=== PATIENT | male | born 1985 | race Caucasian/White ===

== ENCOUNTER 2021-07-18 16:56 | Emergency (ER) | payer SELFPAY ==
[~2021-07-18] VITALS: Ht 175.3 cm; Wt 77.6 kg
--- NOTE | 2021-07-18 16:56 | NUR ---
[facility] TO CHAIR [facility]
[2021-07-18 17:02] VITALS: BP 115/49
[2021-07-18] MEDS ORDERED: BACITRACIN OINT 500 UNITS/GM PKT TP ONE (18:00)
--- NOTE | 2021-07-18 18:12 | NUR ---
35 Y/O MALE BIB PD, PATIENT PRESENTS TO ED WITH MUTLIPLE ABRASIONS ON BODY AND REQUESTING MEDICAL CLEARANCE FOR ETOH AND FACIAL PAIN. PT STATES PAIN IS 8/10. DENIES N/V/D; SKIN IS REDDENED/WARM/DRY, MULTIPLE ABRASIONS; AAOX4, SLOVENIAN SPEAKING WITH EVEN AND STEADY GAIT; LUNGS CLEAR BL; HR EVEN AND REGULAR; PT DENIES ANY FEVER, CP, SOB, OR COUGH AT THIS TIME;ER MD MADE AWARE OF PT STATUS. DENIES SYNCOPE OR LOC. PMH: DENIES [facility] MED: DENIES
[2021-07-18 18:16] VITALS: BP 115/49
--- NOTE | 2021-07-18 18:17 | NUR ---
Patient discharged with v/s stable. Written and verbal after care instructions given and explained. Patient verbalized understanding. ambulatory with Police in custody. All questions addressed prior to discharge. Advised to follow up with PMD.
== END 2021-07-18 18:17 | disposition home or self-care (01) ==
LOC: MED 16:56
DX: S00.81XA Abrasion of other part of head, initial encounter (principal); Z02.89 Encounter for other administrative examinations; Y04.2XXA Assault by strike against or bumped into by another person, initial encounter; Y93.89 Activity, other specified; Y92.89 Other specified places as the place of occurrence of the external cause; Y99.8 Other external cause status
CPT/HCPCS: 90471; 90715; 99283